=== PATIENT | female | born 1950 | race Caucasian/White ===

== ENCOUNTER 2018-05-07 00:31 | Emergency (ER) | payer MEDICARE, OTHER ==
[~2018-05-07] VITALS: Ht 157.4 cm; Wt 81.6 kg
[2018-05-07] MEDS ORDERED: COREG3.125 MG PO (00:36)
[2018-05-07] MEDS ORDERED: LIPITOR80 MG PO (00:37)
[2018-05-07] MEDS ORDERED: LOSARTAN POTASS25 M1 PO (00:37)
[2018-05-07] MEDS ORDERED: METFORMIN850 MG PO (00:37)
[2018-05-07] MEDS ORDERED: VITAMIN E200 UNI1 PO (00:37)
[2018-05-07] MEDS ORDERED: KLONOPIN2 M1 PO (00:38)
[2018-05-07] MEDS ORDERED: VICODIN 5-3001 EACH PO (02:18)
== END 2018-05-07 02:37 | disposition home or self-care (01) ==
LOC: ED → EDBD 00:49 → ED 00:49
DX: S86.911A Strain of unspecified muscle(s) and tendon(s) at lower leg level, right leg, initial encounter (principal); Z88.6 Allergy status to analgesic agent; Z79.899 Other long term (current) drug therapy; W01.0XXA Fall on same level from slipping, tripping and stumbling without subsequent striking against object, initial encounter; Y93.01 Activity, walking, marching and hiking; Y92.008 Other place in unspecified non-institutional (private) residence as the place of occurrence of the external cause; Y99.8 Other external cause status

== ENCOUNTER → 2018-05-18 | Outpatient (CLI) | payer MEDICARE, OTHER ==
[~2018-05-18] MED LIST: COREG3.125 MG PO; KLONOPIN2 M1 PO; LIPITOR80 MG PO; LOSARTAN POTASS25 M1 PO; METFORMIN850 MG PO; VICODIN 5-3001 EACH PO; VITAMIN E200 UNI1 PO
== END | disposition home or self-care (01) ==
LOC: MRI 13:00
DX: S83.231A Complex tear of medial meniscus, current injury, right knee, initial encounter (principal); M17.11 Unilateral primary osteoarthritis, right knee; M25.461 Effusion, right knee; X58.XXXA Exposure to other specified factors, initial encounter; Y93.89 Activity, other specified; Y92.89 Other specified places as the place of occurrence of the external cause; Y99.8 Other external cause status

== ENCOUNTER → 2018-08-10 | Outpatient (CLI) | payer MEDICARE, OTHER | END | disposition home or self-care (01) | LOC: LAB 13:55 | DX: M17.11 Unilateral primary osteoarthritis, right knee (principal); M25.552 Pain in left hip; Z96.642 Presence of left artificial hip joint ==

== ENCOUNTER 2019-01-11 15:40 | Emergency (ER) | payer MEDICARE, OTHER ==
[~2019-01-11] VITALS: Ht 157.4 cm; Wt 81.2 kg
[2019-01-11 16:48] LABS: BILIRUBIN NEGATIVE (NEGATIVE); BLOOD NEGATIVE (NEGATIVE); CLARITY CLEAR (CLEAR); COLOR YELLOW (YELLOW); GLUCOSE NEGATIVE (NEGATIVE); KETONE NEGATIVE (NEGATIVE); LEUKO ESTERASE 1+ (NEGATIVE); NITRITE NEGATIVE (NEGATIVE); UROBILINOGEN 0.2 E.U./dl (0.2-1.0)
[2019-01-11 17:00] LABS: BACTERIA 1+
[2019-01-11 17:11] LABS: BASO # 0.1 10*3/uL (0.0-0.1); BASO % 0.9 % (0.0-1.0); EOS # 0.1 10*3/uL (0.0-0.4); EOS % 2.1 % (1.0-4.0); HEMATOCRIT 35.8 % (37.0-47.0); HEMOGLOBIN 11.6 g/dl (12.0-16.0); LYMPH % 29.5 % (27.0-41.0); MEAN CORPUSCULAR HGB 28.5 pg (27.0-31.0); MEAN CORPUSCULAR HGB CONC 32.4 g/dl (33.0-37.0); MEAN PLATELET VOLUME 11.2 fl (9.6-12.3); MONO # 0.5 10*3/uL (0.1-1.0); MONO % 7.3 % (3.0-9.0); NEUT # 4.1 10*3/uL (2.3-7.9); NEUT % 60.1 % (47.0-73.0); PLATELET COUNT AUTOMATED 255 10*3/uL (130-400); RED BLOOD COUNT 4.07 10*6/uL (4.10-5.10); RED CELL DISTRI WIDTH 13.3 % (0-14.5); WHITE BLOOD COUNT 6.7 10*3/uL (4.8-10.8)
[2019-01-11 17:28] LABS: ALBUMIN 3.3 gm/dl (3.1-4.5); ALKALINE PHOSPHATASE 52 U/L (45-117); BUN 26 mg/dl (7-24); CHLORIDE 108 mmol/L (98-107); CREATININE 0.88 mg/dL (0.55-1.02); LIPASE 167 U/L (73-393); POTASSIUM 4.1 mmol/L (3.5-5.1); SGOT/AST 18 IU/L (3-35); SGPT/ALT 33 U/L (12-78); SODIUM 139 mmol/L (136-145); TOTAL PROTEIN 7.2 gm/dL (6.4-8.2)
[2019-01-11] MEDS ORDERED: REGLAN10 M1 PO (20:00)
== END 2019-01-11 20:05 | disposition home or self-care (01) ==
LOC: ED 15:40
PROVIDERS: Physician Assistant
DX: K52.9 Noninfective gastroenteritis and colitis, unspecified (principal); F17.200 Nicotine dependence, unspecified, uncomplicated; Z88.5 Allergy status to narcotic agent; Z79.899 Other long term (current) drug therapy

== ENCOUNTER 2019-03-17 18:42 | Emergency (ER) | payer MEDICARE, OTHER ==
[~2019-03-17] VITALS: Ht 157.4 cm; Wt 81.2 kg
[~2019-03-17 18:42] MED LIST changes: +REGLAN10 M1 PO
[2019-03-17 19:41] LABS: BASO # 0.1 10*3/uL (0.0-0.1); EOS # 0.2 10*3/uL (0.0-0.4); EOS % 2.3 % (1.0-4.0); HEMATOCRIT 34.1 % (37.0-47.0); HEMOGLOBIN 10.9 g/dl (12.0-16.0); LYMPH % 32.7 % (27.0-41.0); MEAN CELL VOLUME 88.1 fl (81.0-99.0); MEAN CORPUSCULAR HGB 28.2 pg (27.0-31.0); MEAN PLATELET VOLUME 10.9 fl (9.6-12.3); MONO # 0.7 10*3/uL (0.1-1.0); MONO % 7.7 % (3.0-9.0); NEUT # 5.1 10*3/uL (2.3-7.9); NEUT % 55.9 % (47.0-73.0); PLATELET COUNT AUTOMATED 279 10*3/uL (130-400); RED BLOOD COUNT 3.87 10*6/uL (4.10-5.10); RED CELL DISTRI WIDTH 15.3 % (0-14.5); WHITE BLOOD COUNT 9.2 10*3/uL (4.8-10.8)
[2019-03-17 19:54] LABS: ACT PARTIAL THROMBO TIME 26.1 SECONDS (20.0-32.1); INTERNATIONAL NORM RATIO 0.9 (2.0-3.5)
[2019-03-17 19:56] LABS: ALBUMIN 3.3 gm/dl (3.1-4.5); ALKALINE PHOSPHATASE 61 U/L (45-117); BUN 23 mg/dl (7-24); CHLORIDE 107 mmol/L (98-107); CREATININE 0.82 mg/dL (0.55-1.02); LIPASE 78 U/L (73-393); POTASSIUM 4.1 mmol/L (3.5-5.1); SGOT/AST 15 IU/L (3-35); SGPT/ALT 16 U/L (12-78); SODIUM 138 mmol/L (136-145); TOTAL PROTEIN 7.5 gm/dL (6.4-8.2)
[2019-03-17 19:58] LABS: TROPONIN I < 0.015 ng/ml (<0.045)
[2019-03-17 20:39] LABS: BILIRUBIN NEGATIVE (NEGATIVE); BLOOD NEGATIVE (NEGATIVE); CLARITY SL CLOUDY (CLEAR); COLOR YELLOW (YELLOW); GLUCOSE NEGATIVE (NEGATIVE); KETONE TRACE (NEGATIVE); LEUKO ESTERASE TRACE (NEGATIVE); NITRITE NEGATIVE (NEGATIVE); PH 5.5 (5.0-9.0); SPECIFIC GRAVITY >= 1.030 (1.005-1.030); UROBILINOGEN 0.2 E.U./dl (0.2-1.0)
[2019-03-17] MEDS ORDERED: IBU800 MG PO (20:41)
[2019-03-17 20:47] LABS: BACTERIA 1+; MUCOUS 1+; WBC TNTC wbc/hpf (0-5)
== END 2019-03-17 20:47 | disposition home or self-care (01) ==
LOC: ED 18:42
PROVIDERS: Nurse Practitioner Family
DX: T14.8XXA Other injury of unspecified body region, initial encounter (principal); R07.89 Other chest pain; M54.9 Dorsalgia, unspecified; R11.2 Nausea with vomiting, unspecified; I25.2 Old myocardial infarction; E11.9 Type 2 diabetes mellitus without complications; I10 Essential (primary) hypertension; E78.5 Hyperlipidemia, unspecified; Z88.5 Allergy status to narcotic agent; Z79.899 Other long term (current) drug therapy; W01.0XXA Fall on same level from slipping, tripping and stumbling without subsequent striking against object, initial encounter; Y92.89 Other specified places as the place of occurrence of the external cause; Y93.89 Activity, other specified; Y99.8 Other external cause status

== ENCOUNTER 2019-05-25 05:37 | Inpatient (IN) | payer MEDICARE, OTHER ==
[2019-05-25] VITALS (10 sets, daily range): BP systolic 102–186; BP diastolic 54–93
[~2019-05-25] VITALS: Ht 157.5 cm; Wt 71.3 kg
[~2019-05-25 05:37] MED LIST changes: +IBU800 MG PO
[2019-05-25 06:17] LABS: BASO # 0.1 10*3/uL (0.0-0.1); EOS # 0.3 10*3/uL (0.0-0.4); EOS % 3.2 % (1.0-4.0); HEMATOCRIT 31.1 % (37.0-47.0); HEMOGLOBIN 9.8 g/dl (12.0-16.0); LYMPH # 3.1 10*3/uL (1.3-4.4); LYMPH % 39.3 % (27.0-41.0); MEAN CELL VOLUME 87.9 fl (81.0-99.0); MEAN CORPUSCULAR HGB 27.7 pg (27.0-31.0); MEAN CORPUSCULAR HGB CONC 31.5 g/dl (33.0-37.0); MEAN PLATELET VOLUME 11.4 fl (9.6-12.3); MONO # 0.5 10*3/uL (0.1-1.0); MONO % 6.1 % (3.0-9.0); NEUT # 3.9 10*3/uL (2.3-7.9); NEUT % 49.9 % (47.0-73.0); PLATELET COUNT AUTOMATED 296 10*3/uL (130-400); RED BLOOD COUNT 3.54 10*6/uL (4.10-5.10); RED CELL DISTRI WIDTH 14.8 % (0-14.5); WHITE BLOOD COUNT 7.9 10*3/uL (4.8-10.8)
[2019-05-25 06:37] LABS: ALBUMIN 3.2 gm/dl (3.1-4.5); ALKALINE PHOSPHATASE 45 U/L (45-117); BUN 26 mg/dl (7-24); CHLORIDE 106 mmol/L (98-107); CREATININE 0.95 mg/dL (0.55-1.02); POTASSIUM 3.9 mmol/L (3.5-5.1); SGOT/AST 17 IU/L (3-35); SGPT/ALT 25 U/L (12-78); SODIUM 140 mmol/L (136-145); TOTAL PROTEIN 6.8 gm/dL (6.4-8.2)
[2019-05-25 06:43] LABS: ACT PARTIAL THROMBO TIME 24.2 SECONDS (20.0-32.1); INTERNATIONAL NORM RATIO 0.8 (2.0-3.5)
[2019-05-25 06:51] LABS: TROPONIN I < 0.015 ng/ml (<0.045)
--- NOTE | 2019-05-25 07:33 | NUR ---
SITTING UP OVER SIDE OF BED, FAMILY PRESENT. C/O NAUSEA, DIZZYNESS AND SWEATING. DR SMALL NOTIFED.
--- NOTE | 2019-05-25 07:45 | NUR ---
Patient resting quietly with no c/o discomfort. Respirations easy and regular. Vital signs stable. No overt distress. ANNAMARIE FLORES
--- NOTE | 2019-05-25 08:15 | NUR ---
24 HR chart check completed.
--- NOTE | 2019-05-25 08:25 | NUR ---
ZOFRAN EFFECTIVE FOR NAUSEA, LYING BACK IN BED APPEARS RELAXED.
--- NOTE | 2019-05-25 08:28 | NUR ---
LAB IS HERE AT THIS TIME.
--- NOTE | 2019-05-25 08:35 | NUR ---
A 68, admitted to , under the services of Dr. JADE FLORES,YOHANNES Ontiveros with a diagnosis of L SIDED CHEST PAIN, DIZZINESS, ANEMIA, NAUSEA. Chief complaint is L CHEST/RIB PAIN, NON-RADIATING. Patient arrived via stretcher from ER. Monitor applied. Initial assessment completed. Vital signs taken and recorded. DR. JADE FLORES,YOHANNES Ontiveros notified of admission to the unit. Orders received. See assessment for past medical history, medications and allergies. Patient and/or family oriented to unit. [address] visitation policy reviewed. Clothing/patient valuable form completed. ANNAMARIE FLORES
[2019-05-25] MEDS ORDERED: IBU600 M1 PO (10:46)
[2019-05-25] MEDS ORDERED: TYLENOL325 M1 PO (10:46)
[2019-05-25] MEDS ORDERED: LOSARTAN POTASS50 M1 PO (10:47)
[2019-05-25] MEDS ORDERED: NEURONTIN300 MG PO ×2 (10:48→10:49)
--- NOTE | 2019-05-25 11:46 | NUR ---
MEDICATED WITH PO TYLENOL ORDERED PER PT REQUEST FOR C/O HEADACHE.
--- NOTE | 2019-05-25 13:35 | NUR ---
MEDICATED WITH PO MOTRIN ORDERED PER PT REQUEST FOR C/O CONTINUED HEADACHE AND BODY ACHES RATED 5/10.
--- NOTE | 2019-05-25 16:00 | NUR ---
MEDICATIONS EFFECTIVE FOR HEADACHE AND GENERALIZED PAIN/DISCOMFORT.
--- NOTE | 2019-05-25 19:30 | NUR ---
PT IS AWAKE AND RESTING IN BED AT THIS TIME. SHE STATES THAT SHE IS FEELING WELL. NO S/S OF DISTRESS NOTED. BED LOW, CALL LIGHT WITHIN REACH. WILL CONTINUE TO MONITOR.
[2019-05-26] VITALS: BP 84/52; BP 90/62
--- NOTE | 2019-05-26 06:47 | NUR ---
PATIENT AROSES EASILY FOR ADMINISTRATION OF AM MEDICATION. NO C/O OR S/S OF DISTRESS NOTED AT THIS TIME. CALL LIGHT IS WITHIN REACH.
[2019-05-26 08:00] VITALS: BP 97/55
--- NOTE | 2019-05-26 08:45 | NUR ---
Patient resting quietly with no c/o discomfort. Respirations easy and regular. Vital signs stable. No overt distress. ANNAMARIE FLORES
--- NOTE | 2019-05-26 11:30 | NUR ---
Patient resting quietly with no c/o discomfort. Respirations easy and regular. Vital signs stable. No overt distress. ANNAMARIE FLORES
[2019-05-26 12:00] VITALS: BP 104/50
--- NOTE | 2019-05-26 13:50 | NUR ---
MEDICATED WITH PO IBUPROFEN ORDERED PER PT REQUEST FOR C/O R KNEE PAIN.
--- NOTE | 2019-05-26 15:22 | NUR ---
MEDICATION EFFECTIVE FOR R KNEE PAIN.
[2019-05-26 16:00] VITALS: BP 105/57
--- NOTE | 2019-05-26 19:00 | NUR ---
ASSUMED CARE FOR THIS PT AT THIS TIME. PT IN BATHROOM.
[2019-05-26 20:00] VITALS: BP 118/69
--- NOTE | 2019-05-26 20:09 | NUR ---
pt medicated w/motrin for c/o chronic right knee pain 10/10. call light in reach. will monitor for effectiveness.
[2019-05-27] VITALS: BP 117/69
--- NOTE | 2019-05-27 02:55 | NUR ---
24 HR chart check completed.
[2019-05-27 07:15] VITALS: BP 118/62
--- NOTE | 2019-05-27 07:15 | NUR ---
ASSESSMENT COMPLETED AND DOCUMENTED. PT SLEEPING IN BED. DENIES ANY CHEST PAIN AT TIME OF ASSESSMENT. WILL CONTINUE TO MONITOR. HELEN FIGUEROA [facility]
--- NOTE | 2019-05-27 07:49 | NUR ---
INITIAL ASSESSMENT COMPLETED. HANDED OVER PT CARE TO SIENA CORREIA INSTRUCTOR,SAV, AND HER STUDENT NURSE.
--- NOTE | 2019-05-27 08:29 | NUR ---
ASSESSMENT COMPLETED AND DOCUMENTED. PT. SLEEPING IN BED. DENIES ANY CHEST PAIN AT TIME OF ASSESSMENT. WILL CONTINUE TO MONITOR. HELEN FIGUEROA [facility]
--- NOTE | 2019-05-27 09:00 | NUR ---
Hemmer Chainstitch in to talk to patient. Patient states lives at home with her daughter and her daughter's family. There are 5 steps in the home. Physician: Dr. Kamran Rea [facility]: [facility] Home health services: none Patient's level of ADLs: INDEPENDENT Patient has working utilities: yes DME: none Follow-up physician's appointment after d/c: she prefers to make her own follow up appt after discharge Does patient want to access PORTAL?: no Discharge plan discussed with patient. She lives at home with her daughter and her daughter's family. She is independent in her ADLs and ambulation. Discussed home health care services and she denies any home needs at this time. When medically stable she will be discharged to home. She states she will drive herself home as she drove herself here. She is going for a stress test today and if the stress test is negative then discharge to home. YAZMIN CONN
--- NOTE | 2019-05-27 09:20 | NUR ---
PT WENT DOWN FOR STRESS TEST. HELEN FIGUEROA [facility]
--- NOTE | 2019-05-27 10:20 | NUR ---
PT TO [facility] FOR STRESS TEST VIA W/C WITH TRANSPORTER. NO VOICED C/O AT THIS TIME.
--- NOTE | 2019-05-27 11:00 | NUR ---
INFORMED CONSENT SIGNED FOR LEXISCAN STRESS TEST WITH DR. HANSEN. RESTING EKG NSR, HR 63, BP 140/78. PULSE OX 98% AND LUNGS CLEAR BILATERALLY. COMPLETED ONE MINUTE OF LEXISCAN PROTOCOL RECEIVING LEXISCAN 0.4MG OVER 10 SEC[address]DS. NO ARRHYTHMIAS OR ST CHANGES NOTED. PT C/O NAUSEA. LAST RECOVERY HR 91, BP 138/86. WAITING NUCLEAR SCANNING IN STABLE CONDITION.
--- NOTE | 2019-05-27 12:10 | NUR ---
PT. RETURNED FROM [facility]. RESTING IN BED READING THE PAPER. NO COMPLAINTS AT THIS TIME. WILL CONTINUE TO MONITOR. HELEN LINDER
[2019-05-27 12:15] VITALS: BP 165/90
[2019-05-27 16:00] VITALS: BP 156/88
--- NOTE | 2019-05-27 17:05 | NUR ---
Discharge instructions reviewed with patient/family. Patient receptive and verbalizes understanding. Follow-up care arranged. Written instructions given to patient/family.TELEMETRY ACCOUNTED FOR. ERNIE Merrill/Anders. CLEMENTE THOMAS
== END 2019-05-27 17:05 | disposition home or self-care (01) | DRG 313 ==
LOC: ED 05:37 → EDHOLD 07:58 → 4E 08:20
PROVIDERS: Emergency Medicine Emergency Medical Services; ADMIT Internal Medicine
PROC: 4A02XM4 Measurement of Cardiac Total Activity, External Approach (ICD-10-PCS; principal; 2019-05-27)
PROC: 3E073KZ Introduction of Other Diagnostic Substance into Coronary Artery, Percutaneous Approach (ICD-10-PCS; principal; 2019-05-27)
DX: R07.89 Other chest pain (principal); R07.2 Precordial pain; I25.10 Atherosclerotic heart disease of native coronary artery without angina pectoris; D64.9 Anemia, unspecified; E83.42 Hypomagnesemia; E11.9 Type 2 diabetes mellitus without complications; I10 Essential (primary) hypertension; F41.1 Generalized anxiety disorder; G89.29 Other chronic pain; M47.816 Spondylosis without myelopathy or radiculopathy, lumbar region; Z88.6 Allergy status to analgesic agent; Z95.5 Presence of coronary angioplasty implant and graft; Z79.899 Other long term (current) drug therapy; Z79.84 Long term (current) use of oral hypoglycemic drugs

== ENCOUNTER → 2020-07-24 | Outpatient (CLI) | payer MEDICARE, OTHER ==
[~2020-07-24] MED LIST changes: +IBU600 M1 PO; +LOSARTAN POTASS50 M1 PO; +NEURONTIN300 MG PO; +TYLENOL325 M1 PO
== END | disposition home or self-care (01) ==
LOC: COVID19 11:47
PROVIDERS: ATTEND Internal Medicine
DX: Z20.822 Contact with and (suspected) exposure to COVID-19 (principal)

== ENCOUNTER 2021-06-09 12:33 | Emergency (ER) | payer MEDICARE, OTHER ==
[~2021-06-09] VITALS: Ht 157.4 cm; Wt 77.1 kg
[2021-06-09] MEDS ORDERED: MEDROL DOSEPAK4 MG PO (15:48)
== END 2021-06-09 16:24 | disposition home or self-care (01) ==
LOC: ED 12:33
DX: M54.50 Low back pain, unspecified (principal); Z88.6 Allergy status to analgesic agent; Z79.899 Other long term (current) drug therapy

== ENCOUNTER 2021-06-15 15:43 | Emergency (ER) | payer MEDICARE, OTHER ==
[~2021-06-15 15:43] MED LIST changes: +MEDROL DOSEPAK4 MG PO
[2021-06-15 16:17] LABS: BASO # 0.1 10*3/uL (0.0-0.1); BASO % 0.7 % (0.0-1.0); EOS # 0.3 10*3/uL (0.0-0.4); EOS % 2.4 % (1.0-4.0); HEMATOCRIT 37.6 % (37.0-47.0); LYMPH # 2.3 10*3/uL (1.3-4.4); LYMPH % 19.8 % (27.0-41.0); MEAN CELL VOLUME 89.7 fl (81.0-99.0); MEAN CORPUSCULAR HGB 28.6 pg (27.0-31.0); MEAN CORPUSCULAR HGB CONC 31.9 g/dl (33.0-37.0); MEAN PLATELET VOLUME 10.3 fl (9.6-12.3); MONO # 0.9 10*3/uL (0.1-1.0); MONO % 8.2 % (3.0-9.0); NEUT # 7.9 10*3/uL (2.3-7.9); NEUT % 68.5 % (47.0-73.0); PLATELET COUNT AUTOMATED 264 10*3/uL (130-400); RED BLOOD COUNT 4.19 10*6/uL (4.10-5.10); RED CELL DISTRI WIDTH 14.4 % (0-14.5); WHITE BLOOD COUNT 11.5 10*3/uL (4.8-10.8)
[2021-06-15 16:38] LABS: ALBUMIN 3.4 gm/dl (3.1-4.5); ALKALINE PHOSPHATASE 66 U/L (45-117); BUN 25 mg/dl (7-24); CHLORIDE 105 mmol/L (98-107); CREATININE 0.98 mg/dL (0.55-1.02); POTASSIUM 4.2 mmol/L (3.5-5.1); SGOT/AST 15 IU/L (3-35); SGPT/ALT 29 U/L (12-78); SODIUM 138 mmol/L (136-145); TOTAL PROTEIN 7.9 gm/dL (6.4-8.2)
== END 2021-06-15 19:20 | disposition home or self-care (01) ==
LOC: ED 15:43
PROVIDERS: Student in an Organized Health Care Education/Training Program
DX: J06.9 Acute upper respiratory infection, unspecified (principal); Z20.822 Contact with and (suspected) exposure to COVID-19; Z88.6 Allergy status to analgesic agent; Z79.899 Other long term (current) drug therapy

== ENCOUNTER → 2021-09-01 | Outpatient (CLI) | payer MEDICARE, OTHER ==
[2021-09-01 12:29] LABS: BASO # 0.1 10*3/uL (0.0-0.1); EOS # 0.2 10*3/uL (0.0-0.4); EOS % 3.2 % (1.0-4.0); HEMATOCRIT 37.3 % (37.0-47.0); LYMPH # 1.8 10*3/uL (1.3-4.4); LYMPH % 25.8 % (27.0-41.0); MEAN CELL VOLUME 88.2 fl (81.0-99.0); MEAN CORPUSCULAR HGB 28.4 pg (27.0-31.0); MEAN CORPUSCULAR HGB CONC 32.2 g/dl (33.0-37.0); MEAN PLATELET VOLUME 10.1 fl (9.6-12.3); MONO # 0.4 10*3/uL (0.1-1.0); NEUT # 4.5 10*3/uL (2.3-7.9); NEUT % 63.7 % (47.0-73.0); PLATELET COUNT AUTOMATED 235 10*3/uL (130-400); RED BLOOD COUNT 4.23 10*6/uL (4.10-5.10); RED CELL DISTRI WIDTH 14.6 % (0-14.5); WHITE BLOOD COUNT 7.1 10*3/uL (4.8-10.8)
[2021-09-01 12:46] LABS: CHLORIDE 108 mmol/L (98-107); POTASSIUM 4.4 mmol/L (3.5-5.1); SODIUM 139 mmol/L (136-145)
[2021-09-01 12:53] LABS: ALKALINE PHOSPHATASE 54 U/L (45-117); BUN 23 mg/dl (7-24); CHOLESTEROL 287 mg/dL (<200); CREATININE 0.92 mg/dL (0.55-1.02); FREE T4 0.82 ng/dl (0.76-1.46); LDL CHOLESTEROL 168 mg/dL (9-159); SGOT/AST 18 IU/L (3-35); SGPT/ALT 26 U/L (12-78); TOTAL PROTEIN 7.3 gm/dL (6.4-8.2); TRIGLYCERIDES 202 mg/dl (<150)
[2021-09-01 13:50] LABS: VITAMIN D, 25-HYDROXY 36.3 ng/mL (30-100)
== END | disposition home or self-care (01) ==
LOC: LAB 12:06 → RAD 13:30
PROVIDERS: ATTEND Internal Medicine
DX: Z13.820 Encounter for screening for osteoporosis (principal); R53.81 Other malaise; R79.89 Other specified abnormal findings of blood chemistry; E55.9 Vitamin D deficiency, unspecified; E03.9 Hypothyroidism, unspecified; D52.9 Folate deficiency anemia, unspecified; Z13.1 Encounter for screening for diabetes mellitus; Z13.21 Encounter for screening for nutritional disorder; Z13.228 Encounter for screening for other metabolic disorders; Z13.89 Encounter for screening for other disorder; Z13.6 Encounter for screening for cardiovascular disorders; Z13.0 Encounter for screening for diseases of the blood and blood-forming organs and certain disorders involving the immune mechanism; D51.9 Vitamin B12 deficiency anemia, unspecified; Z78.0 Asymptomatic menopausal state

== ENCOUNTER 2023-04-30 01:37 | Emergency (ER) | payer OTHER, MEDICARE ==
[~2023-04-30] VITALS: Ht 157.4 cm; Wt 81.2 kg
== END 2023-04-30 05:55 | disposition home or self-care (01) ==
LOC: ED 01:37
DX: S61.411A Laceration without foreign body of right hand, initial encounter (principal); S50.811A Abrasion of right forearm, initial encounter; M25.521 Pain in right elbow; M25.561 Pain in right knee; M25.511 Pain in right shoulder; M25.551 Pain in right hip; Z88.5 Allergy status to narcotic agent; I10 Essential (primary) hypertension; E11.9 Type 2 diabetes mellitus without complications; V89.2XXA Person injured in unspecified motor-vehicle accident, traffic, initial encounter; Y93.89 Activity, other specified; Y92.410 Unspecified street and highway as the place of occurrence of the external cause; Y99.0 Civilian activity done for income or pay

== ENCOUNTER 2023-06-24 13:26 | Emergency (ER) | payer MEDICARE, OTHER ==
[~2023-06-24] VITALS: Ht 157.4 cm; Wt 79.4 kg
[2023-06-24] MEDS ORDERED: AMOX-CLAV 875-1 EACH PO (14:06)
== END 2023-06-24 14:41 | disposition home or self-care (01) ==
LOC: ED 13:26
DX: S61.232A Puncture wound without foreign body of right middle finger without damage to nail, initial encounter (principal); S61.234A Puncture wound without foreign body of right ring finger without damage to nail, initial encounter; I10 Essential (primary) hypertension; E11.9 Type 2 diabetes mellitus without complications; Z88.8 Allergy status to other drugs, medicaments and biological substances; Z88.5 Allergy status to narcotic agent; W54.0XXA Bitten by dog, initial encounter; Y93.89 Activity, other specified; Y92.89 Other specified places as the place of occurrence of the external cause; Y99.8 Other external cause status

== ENCOUNTER 2024-04-02 19:19 | Emergency (ER) | payer MEDICARE, OTHER ==
[~2024-04-02] VITALS: Ht 157.4 cm; Wt 81.6 kg
[~2024-04-02 19:19] MED LIST changes: +AMOX-CLAV 875-1 EACH PO
[2024-04-02 20:22] LABS: BASO # 0.1 10*3/uL (0.0-0.1); BASO % 0.8 % (0.0-1.0); EOS # 0.3 10*3/uL (0.0-0.4); EOS % 2.6 % (1.0-4.0); HEMATOCRIT 37.3 % (37.0-47.0); LYMPH # 2.4 10*3/uL (1.3-4.4); LYMPH % 25.3 % (27.0-41.0); MEAN CELL VOLUME 90.1 fl (81.0-99.0); MEAN CORPUSCULAR HGB 28.5 pg (27.0-31.0); MEAN CORPUSCULAR HGB CONC 31.6 g/dl (33.0-37.0); MEAN PLATELET VOLUME 10.8 fl (9.6-12.3); MONO # 0.5 10*3/uL (0.1-1.0); MONO % 5.5 % (3.0-9.0); NEUT # 6.3 10*3/uL (2.3-7.9); NEUT % 65.5 % (47.0-73.0); PLATELET COUNT AUTOMATED 250 10*3/uL (130-400); RED BLOOD COUNT 4.14 10*6/uL (4.10-5.10); RED CELL DISTRI WIDTH 13.7 % (0-14.5); WHITE BLOOD COUNT 9.6 10*3/uL (4.8-10.8)
[2024-04-02 20:43] LABS: ALKALINE PHOSPHATASE 75 U/L (46-116); BUN 18 mg/dl (9-23); CHLORIDE 102 mmol/L (98-107); CPK 48 U/L (34-171); POTASSIUM 3.5 mmol/L (3.4-5.1); TOTAL PROTEIN 6.9 gm/dL (6.0-8.0)
[2024-04-02 20:47] LABS: SGPT/ALT < 7 U/L (5-49)
== END 2024-04-03 00:23 | disposition short-term general hospital (02) ==
LOC: ED 19:19
PROVIDERS: Emergency Medicine
DX: I61.9 Nontraumatic intracerebral hemorrhage, unspecified (principal); E11.9 Type 2 diabetes mellitus without complications; I10 Essential (primary) hypertension; E78.00 Pure hypercholesterolemia, unspecified; D64.9 Anemia, unspecified; E83.42 Hypomagnesemia; Z88.5 Allergy status to narcotic agent; Z88.7 Allergy status to serum and vaccine; Z88.8 Allergy status to other drugs, medicaments and biological substances

== ENCOUNTER → 2024-06-24 | Outpatient (CLI) | payer MEDICARE ==
[~2024-06-24] MED LIST changes: +GADOTERATE MEGLUMINE 7.5 MMOL/15 ML VIAL IV ONE
== END | disposition home or self-care (01) ==
LOC: MRI 12:24
PROVIDERS: ATTEND Psychiatry & Neurology Neurology
DX: G93.89 Other specified disorders of brain (principal); I61.9 Nontraumatic intracerebral hemorrhage, unspecified

== ENCOUNTER → 2024-08-19 | Outpatient (CLI) | payer MEDICARE ==
[~2024-08-19] MED LIST changes: -GADOTERATE MEGLUMINE 7.5 MMOL/15 ML VIAL IV ONE
== END | disposition home or self-care (01) ==
LOC: LAB 15:20
PROVIDERS: ATTEND Physician Assistant
DX: I63.9 Cerebral infarction, unspecified (principal)